=== PATIENT | female | born 1990 | race Caucasian/White ===

== ENCOUNTER 2019-12-22 22:00 | Inpatient (IN) ==
[2019-12-22] MEDS ORDERED: *HR* FentaNYL (PF) 100 MCG/2 ML VIAL IVP PRN (22:13)
[2019-12-22] MEDS ORDERED: Naloxone 0.4 MG/ML INJ IVP PRN (22:13)
[2019-12-22] MEDS ORDERED: Lidocaine 1% 20 ML MDV INFILT PRN (22:13)
[2019-12-22] MEDS ORDERED: Ondansetron 4 MG/2 ML VIAL IVP PRN (22:13)
[2019-12-22] MEDS ORDERED: Famotidine 20 MG/2 ML VIAL IVP PRN (22:13)
[2019-12-22] MEDS ORDERED: Metoclopramide 10 MG/2 ML VIAL IVP PRN (22:13)
[2019-12-22] MEDS ORDERED: Ringers Solution, Lactated 1,000 ML IVC SCH (22:15)
[2019-12-22] MEDS ORDERED: Oxytocin 20 units/ LR 1000 mL 20 UNIT/1,000 ML BAG IVC SCH (22:15)
[2019-12-22 22:51] LABS: Basophils % 0.1 %; Eosinophils % 0.5 %; Hematocrit 34.6 % (35.3-44.9); Hemoglobin 11.7 g/dL (11.5-15.4); Immature Granulocytes % 0.5 % (0-4); Lymphocytes # 1.7 K/mcL (0.6-4.6); Lymphocytes % 19.7 %; Mean Corpuscular HGB Conc 33.8 g/dL (31.6-35.5); Mean Corpuscular Hemoglobin 31.7 pg (28.0-33.3); Mean Corpuscular Volume 93.8 fL (83.0-100.0); Mean Platelet Volume 9.8 fL (9.4-12.4); Monocytes # 0.8 K/mcL (0.0-1.3); Monocytes % 9.8 %; Platelet Count 161 K/mcL (140-400); Red Blood Count 3.69 M/mcL (3.82-4.97); Red Cell Distribution Width 12.7 % (11.5-14.5); Segmented Neutrophils % 69.4 %; White Blood Count 8.6 K/mcL (4.3-11.1)
[2019-12-22 23:03] LABS: Amphetamine Screen,Urine Negative ng/mL (Cutoff=1000); Barbiturate Screen,Urine Negative ng/mL (Cutoff=200); Benzodiazepines Screen,Urine Negative ng/mL (Cutoff=200); Cannabinoid Screen,Urine Negative ng/mL (Cutoff = 50); Cocaine Screen,Urine Negative ng/mL (Cutoff= 300); Opiate Screen,Urine Negative ng/mL (Cutoff=300); Phencyclidine Screen,Urine Negative ng/mL (Cutoff=25)
[2019-12-23] MEDS ORDERED: EPHEDrine 50 MG/ML VIAL IVP PRN (03:18)
[2019-12-23] MEDS ORDERED: Epidural Premix (fent/bupiv) 110 ML EP SCH (03:30)
[2019-12-23] MEDS ORDERED: Lidocaine/EPI 1:200k 2% PF 20 ML VIAL ONE (06:31)
[2019-12-23] MEDS ORDERED: Ropivacaine/PF 0.2% 20 ML VIAL ONE (07:10)
[2019-12-23] MEDS ORDERED: Acetaminophen 325 MG TABLET PO PRN (09:55)
[2019-12-23] MEDS ORDERED: Benzocaine/Menthol 56 GM AEROSOL SPRAY TP PRN (09:55)
[2019-12-23] MEDS ORDERED: Oxytocin 20 units/ LR 1000 mL 20 UNIT/1,000 ML BAG IVC SCH (09:55)
[2019-12-23] MEDS ORDERED: Oxytocin 20 units/ LR 1000 mL 20 UNIT/1,000 ML BAG IVC ONE (09:55)
[2019-12-23] MEDS ORDERED: Rho Immune Globulin 1,500 UNIT SYRINGE IM PRN (09:55)
[2019-12-23] MEDS ORDERED: Measles/Mumps/Rubella Vacc 0.5 ML VIAL SQ PRN (09:55)
[2019-12-23] MEDS ORDERED: Sennosides 8.6 MG TABLET PO PRN (09:55)
[2019-12-23] MEDS ORDERED: Lanolin 7 G OINT...G. TP PRN (09:55)
[2019-12-23] MEDS: Ibuprofen 600 MG TABLET PO PRN ×2 (13:12→20:38)
[2019-12-24] MEDS: Ibuprofen 600 MG TABLET PO PRN (05:12)
[2019-12-24 05:31] LABS: Basophils % 0.1 %; Eosinophils % 0.3 %; Hematocrit 33.6 % (35.3-44.9); Immature Granulocytes % 0.5 % (0-4); Lymphocytes # 1.5 K/mcL (0.6-4.6); Lymphocytes % 16.8 %; Mean Corpuscular HGB Conc 32.7 g/dL (31.6-35.5); Mean Corpuscular Hemoglobin 31.5 pg (28.0-33.3); Mean Corpuscular Volume 96.3 fL (83.0-100.0); Monocytes # 0.7 K/mcL (0.0-1.3); Monocytes % 7.3 %; Neutrophils # 6.9 K/mcL (1.6-8.9); Platelet Count 166 K/mcL (140-400); Red Blood Count 3.49 M/mcL (3.82-4.97); Red Cell Distribution Width 12.9 % (11.5-14.5); White Blood Count 9.2 K/mcL (4.3-11.1)
[2019-12-24 08:30] VITALS: BP 107/74
[2019-12-24] MEDS ORDERED: Prenatal Vit/FA 1 EACH TABLET PO SCH (09:00)
== END 2019-12-24 10:30 | disposition home or self-care (01) | DRG 807 ==
LOC: 1NENULAB 22:12 → 1NENUOBS 12-23 12:44
PROVIDERS: ADMIT Student in an Organized Health Care Education/Training Program; ATTEND Student in an Organized Health Care Education/Training Program